=== PATIENT | female | born 1995 | race Caucasian/White ===

== ENCOUNTER → 2021-08-15 | Day surgery (SDC) | payer OTHER ==
[~2021-08-15] VITALS: Ht 160 cm; Wt 69.4 kg
[~2021-08-15] MED LIST: ALPRAZOLAM 0.50.5 M1 PO; CLARITIN10 M2 PO; CYCLOBENZAPRINE5 MG PO; LINEZOLID600 MG PO; METOPROLOL SUCC25 M1 PO; MIRALAX17 GM PO; NORCO5 PO; ONDANSETRON ODT4 MG PO; PEPCID20 MG PO; PERCOCET PO; PROAIR HFA8.5 GM INH; TRAMADOL 50 MG50 MG PO; VITAMIN C1000 MG PO; VITAMIN D325 MC2 PO; ZOFRAN ODT4 MG SUBLING
[2021-08-15 10:26] VITALS: BP 101/51
[2021-08-15 14:34] VITALS: BP 101/51
--- NOTE | 2021-08-22 14:17 | O ---
[facility] [place] [address] [place] [address] OPERATIVE REPORT Name: CELESTINE PORRAS Room #: [facility] Rufino#: [id number] Admission: 08/15/21 Attend Phys: Rupali Mehta DO Discharge: Date of : 97 Report #: [id number] THIS REPORT FOR: cc: FAM - No family physician/PCP FAM - No family physician/PCP Rupali Mehta DO ~ DATE OF SERVICE: 08/15/2021 PREOPERATIVE DIAGNOSES: 1. Lymphadenopathy. 2. Possible lymphoma. POSTOPERATIVE DIAGNOSES: 1. Lymphadenopathy. 2. Possible lymphoma. PROCEDURES: 1. Excisional biopsy of right neck lymph node. 2. Left internal jugular vein Ucfd-U-Zebokufn placement with ultrasound and fluoroscopic guidance and interpretation. SURGEON: Rupali Mehta DO ANESTHESIA: General LMA and local anesthetic. SPECIMENS: Right neck lymph node, sent fresh. ESTIMATED BLOOD LOSS: 25 mL. COMPLICATIONS: None. INDICATIONS FOR PROCEDURES: The patient is a 26-year-old female followed by Dr. Blanc with Oncology in [place], [place]. The patient has concerns for lymphoma and had a previous core needle liver biopsy obtained, which was inconclusive due to crush artifacts. Excisional biopsy of the lymph node was requested as well as Spwy-A-Kntgjwzu placement for chemotherapy. The patient was explained the procedures including risks, benefits and alternatives. All questions were answered to the patient's satisfaction. Informed consent was obtained. DESCRIPTION OF PROCEDURE: After the patient was brought back to the operating room and placed in supine position, general anesthesia was induced. SCDs were placed on bilateral lower extremities and prophylactic antibiotics were administered. Next, after a timeout was performed, the bilateral neck and chest were prepped and draped in the usual sterile fashion and a timeout was performed. The patient's head was turned to the left and attention was first [address] [address] OPERATIVE REPORT Name: LUIGI PORRASICA Room #: [facility] M.R.#: [id number] Admission: 08/15/21 Attend Phys: Rupali Mehta DO Discharge: Date of : 97 Report #: [id number] turned towards the lymph node. The previously marked lymph node in the right submandibular region, which was identified in the preoperative holding area, was palpated and was noted to be approximately 2 x 2 cm in size as well as firm and fixed. Local anesthetic was infiltrated over the palpable node. A 2.5-cm incision was created with a 15 blade scalpel and dissection was carried down to the subcutaneous tissues using Bovie cautery. Next, once the superficial lymph node was identified, it was circumferentially dissected free from the surrounding tissues using a Regi clamp. Next, the lymph node was gently grasped and dissected free from the platysma muscle and was divided with Bovie cautery. This was sent for fresh pathology after discussing with the pathologist that no formalin would be used. Specimens to be sent fresh, so flow cytology could be performed. Next, the platysma muscle was then reapproximated using 3-0 Vicryl suture. The wound was noted to be hemostatic. The subcutaneous tissues were closed in a deep layer of 3-0 Vicryl and the skin was then reapproximated with 4-0 Monocryl in a subcuticular manner. Dermabond was applied for sterile dressing. Next, the instruments were exchanged and top gloves were exchanged to keep the next portion of the procedure sterile. The Anesthesia then turned the patient's head to the right for the Hvkz-L-Oimcyikb placement. An 8-Kiswahili Fchk-S-Evsqmnvg PowerPort was then selected. Using ultrasound guidance, the right IJ and right carotid vein were visualized. The internal jugular vein on the left was accessed on the third attempt, noting dark venous nonpulsatile blood. The wire was then placed. This was visualized with fluoroscopy and noted to be within the right ventricle. There was noted to be some difficulty passing the wire from the distal superior vena cava into the atria; however, it was able to be advanced. Next, the dilator and sheath were then placed. A 3 cm incision was made approximately 2 fingerbreadths below the level of the clavicle and a pocket was created in the deep subcutaneous tissues near the pectoralis muscle. Next, local anesthetic was infiltrated into this pocket as well as the tract from this incision site to the needle stick site where the tunneling of the catheter would be performed. Next, the catheter was then placed through the sheath and the sheath was snapped free parallel to the skin. The tunneling device was then attached to the end of the catheter and brought it out through the subclavicular incision site. With fluoroscopy, the catheter was withdrawn under direct visualization, noting the tip of the catheter at the atrial caval junction. Next, the catheter was then cut at approximately 24 cm at the level of the skin, the clear locking mechanism was placed and the port was attached. The port hub was then placed within the previously created pocket. The port was noted to freely aspirate and flush. It was packed with 10,000 units of heparin and 1 mL mixed with 4 mL of injectable saline. The port was then fixed with two superior aspects of the port to the pectoralis using a 2-0 Prolene suture. Again, the wound was noted to be hemostatic. Local anesthetic was additionally infiltrated into the large skin incision. The skin was then reapproximated with 3-0 Vicryl and 4-0 Monocryl in a subcuticular manner and Dermabond was applied for sterile dressing. A simple 4-0 Monocryl U stitch was then placed at the neck incision. Dermabond was also [facility] [address] [place] [address] OPERATIVE REPORT Name: PORRASCELESTINE Room #: [facility] Oanh.#: [id number] Admission: 08/15/21 Attend Phys: Rupali Mehta DO Discharge: Date of : 97 Report #: [id number] applied. The patient tolerated the procedure well without any complications. She was awakened from anesthesia and taken to the PACU in stable condition for chest x-ray prior to discharge home. <ELECTRONICALLY SIGNED> By: Rupali Mehta DO 08/22/21 1417 1310 1530 Rupali Mehta DO /nt
--- NOTE | 2021-08-23 14:07 | PATH ---
[facility] [address] [place] [address] PATHOLOGY RPT PROCEDURE Name: CELESTINE PORRAS Room #: [facility] [place] M.R.#: [id number] Admission: 08/15/21 Date of : [birth year] Discharge: Report #: [id number] Path Case #: [id number] [facility] Accession Number: [id number] . 01 Material submitted: . neck - RIGHT NECK LYMPH NODE. Modifiers: right . 01 Clinical history: . BIOPSY LYMPH NODE LYMPHACLEMOPATHY . 02 Diagnosis: Lymph nodes (2), right neck, excisional biopsy: - Classic Hodgkin Lymphoma, favor mixed cellularity type, involving 2 of 2 lymph nodes (2/2). See comment. (SCA:patient relations coordinator; 08/22/2021) . . Special studies report received from [facility], [address] [place] [address], [address], [place], [address], on case [id number], labeled with their number [id number], dated 08/17/2021. . Flow Cytometry: Hematologic Neoplasia Assessment . Clinical History Lymphadenopathy . Indication For Study Evaluation for lymphadenopathy . Specimen Lymph Node, Right Neck . Viability 86% (7AAD exclusion) . Interpretation Lymph Node, Right Neck: - Features of T-cell activation (see comment). - Mildly increased CD4:CD8 ratio. - CD30 expression on a subset of T-cells. - B-cells are polytypic. . Comments CD4:CD8 ratio is mildly increased and there is an increased proportion of T-cells with relatively bright CD38 (feature of activation). There is no definitive B-cell light chain abnormality. CD30 is expressed on a subset of T-cells. Similar results are often associated with Hodgkin lymphoma [facility] [address] [place] [address] PATHOLOGY RPT PROCEDURE Name: CELESTINE PORRAS Room #: [facility] [place] M.R.#: [id number] Admission: 08/15/21 Date of : [birth year] Discharge: Report #: [id number] Path Case #: [id number] (the apparent CD30 expression on T-cells may result from rosetting of T-cells around Hodgkin cells). Similar results may also be seen in cases of non-Hodgkin lymphoma where the neoplastic cells are not adequately represented by the flow data or as secondary/reactive changes in non-neoplastic lymph nodes (non-specific reactive changes, granulomatous disease/sarcoidosis, etc.). A CD30+ T-cell lymphoproliferative disorder (including anaplastic large cell lymphoma), is much less likely but cannot be totally excluded based solely on flow cytometry analysis. Correlation with all available clinical, laboratory, and morphologic data is necessary. . Populations Analyzed Lymphocytes: 82% B-cells: 13.2%, polytypic/polyclonal sIg light chain pattern T-cells: no aberrant expression of the T-cell lineage markers tested; increased proportion of T-cells with relatively bright CD38 (feature of activation) (non-specific), CD30 expression on a subset of T-cells CD4:CD8: 12.4 NK cells: 0.5% Granulocytes: 1% Present Monocytes/ 1% Present Histiocytes: CD45 Negative 16% No significant reactivity with the markers tested Events/Debris: (may represent non-hematolymphoid cells, degenerated cells, debris, unlysed red blood cells, etc.) . Morphologic Evaluation A slide was reviewed for coding quality coordinator purposes only. . Specimen Description Total Cell Yield: 18.98 X 10 and 6 . Pertinent Prior Test Results Received Date Test Type Specimen Type Result 08/03/2021 Flow Cytometry Tissue Result Number: [id number] See Report 08/03/2021 Flow Cytometry Peripheral Blood Result Number: [id number] See Report . Reagent(s) Used CD2, CD3, CD4, CD5, CD7, CD8, CD10, CD11b, CD19, CD20, CD23, CD30, CD38, CD43, CD45, CD56, CD57, FMC-7, HLA-DR, kappa, [place] [address] PATHOLOGY RPT PROCEDURE Name: CELESTINE PORRAS Room #: [facility] [place] M..#: [id number] Admission: 08/15/21 Date of : [birth year] Discharge: Report #: [id number] Path Case #: [id number] at [facility]. Ludy Vela MD Pathologist . Intended Use Flow cytometry is optimally used to immunophenotypically characterize abnormal populations when they are detected. Negative flow cytometry results do not exclude lymphoma or neoplasia. Possible false negative flow cytometry results may occur in, but are not limited to, the following: neoplastic cells in Hodgkin lymphoma are not typically adequately represented by routine clinical flow cytometry; neoplastic cells may be lost or inadequately represented due to degeneration, sample processing, sampling artifact, or patchy involvement; plasma cells are typically underrepresented by flow cytometry; immature cells/blasts may be underrepresented due to hemodilution; myeloproliferative disorders and low grade myelodysplasia may not have immunophenotypic abnormalities or increased blasts. Correlation with all available clinical, laboratory, and morphologic data is always necessary to assess for the possibility of false negative flow cytometry results and to establish a diagnosis. Each marker in this analysis was used to assess for potential antigenic abnormalities or to evaluate detected abnormalities. . Any image or images that accompany this report are mechanical service representative images only and should not be used to render a diagnosis. . Disclaimer(s) This test was developed and its performance characteristics determined by [facility]. It has not been cleared or approved by the Food and Drug Administration. . Performing [facility] is a business unit of [facility] a wholly-owned subsidiary of [employer]. . This test was performed at [facility]. at [address] [facility] [address], [address] - Inclusion Specialist: Carson Corado MD. . For inquiries, the physician may contact Lab: [phone] . A complete copy of the report is on file. . Professional services performed by [facility] at [address], [place] [address]. Technical services performed by [facility] at [address], [place] [address]. . [address] [address] PATHOLOGY RPT PROCEDURE Name: CELESTINE PORRAS [id number] Admission: 08/15/21 Date of : [birth year] Discharge: Report #: [id number] Path Case #: [id number] (SCA:am 08/20/2021) . AZJ 08/22/2021 1715 Local . 02 Comment: Sections show lymph nodes (2) with a diffusely effaced tyson architecture. There is a mixed inflammatory cell background composed of small lymphocytes and eosinophils. There are occasional large cells with irregular and hyperchromatic nuclei present. . To further evaluate the large atypical cells, properly controlled immunohistochemical stains were performed on block A3. . CD30 - large atypical cells reactive in a membranous and golgi type pattern. CD15 - large atypical cells reactive, also stains granulocytes. MUM1 - large atypical cells reactive, also stains plasma cells. PAX-5 - large atypical cells weakly reactive, also stains small B-cells. CD3 - highlights T-cells. CD5 - highlights T-cells. BCL-2 - large atypical cells reactive and highlights T-cells. CD20 - highlights small B-cells. CD10 - highlights scattered residual germinal centers. BCL-6 - highlights scattered residual germinal centers. CD45 - large atypical cells negative, stains lymphocytes. CD21 - highlights patchy expanded residual follicular dendritic meshwork. . Flow cytometric immunophenotypic analysis was performed at [facility] ([id number]) which revealed that B-cells were polytypic, a mildly increased CD4:CD8 ratio, CD30 expression on a subset of T-cells, and features of T-cell activation. Please see separate report. . Based on the immunohistochemical and morphologic findings, the diagnosis of Classic Hodgkin Lymphoma, favor mixed cellularity type, is supported. . This case was co-reviewed by Dr. Patricia Peterson on 08/22/2021, who agrees with the above diagnosis. . The findings were discussed with Dr. Woods at 0810 on 08/23/2021. . (SCA:mike; 08/22/2021) . 02 Diagnosis provided by: . Johan Eddy DO, Pathologist NPI- [id number] . 03 Electronically signed: . [address] [address] PATHOLOGY RPT PROCEDURE Name: CELESTINE PORRAS Room #: [facility] [place] M.R.#: [id number] Admission: 08/15/21 Date of : 97 Discharge: Report #: [id number] Path Case #: [id number] Johan Eddy DO, Pathologist NPI- [id number] . 01 Gross description: . The specimen is received in formalin, labeled "Celestine Porras, RT. neck lymph node" and consists of two pink-tinajero candidate lymph nodes (0.8 x 0.4 x 0.4 cm and 1.5 x 1.4 x 1.2 cm), the largest of which has been previously partially disrupted and previously partially sectioned. A mechanical service representative sample has been previously placed in RPMI media and is now given to send outs for additional testing. Two touch preps are made. The remainder of the candidate lymph nodes are submitted as follows: A1: 1 serially sectioned candidate lymph node, entirely submitted A2-A4: Remainder of one serially sectioned candidate lymph node, entirely submitted ([place]; 08/15/2021) DKA/DKA 08/15/2021 1550 Local . 02 Pathologist provided ICD-10: R59.1, I89.8 . 02 CPT . 170768, L58961, G91660 Specimen Comment: A courtesy copy of this report has been sent to [phone] Specimen Comment: Report sent to Specimen Comment: A duplicate report has been generated due to demographic updates. Performed at: 01 [facility] [address] [id number] MD Eugenio Oglesby MD Phone: [phone] Performed at: 02 [facility] [id number] [place] [id number] MD Patricia Peterson MD Phone: [phone] Performed at: 03 [facility] [address] [id number] MD Bob Machado MD Phone: [phone]
== END | disposition home or self-care (01) ==
LOC: OR 08:52
PROVIDERS: ATTEND Surgery
DX: Z45.2 Encounter for adjustment and management of vascular access device (principal); C81.21 Mixed cellularity Hodgkin lymphoma, lymph nodes of head, face, and neck; R59.1 Generalized enlarged lymph nodes; J45.909 Unspecified asthma, uncomplicated; K21.9 Gastro-esophageal reflux disease without esophagitis; Z98.890 Other specified postprocedural states; Z79.899 Other long term (current) drug therapy; Z20.822 Contact with and (suspected) exposure to COVID-19
CPT/HCPCS: 50010; 50101; 50386; 50403; 51938; 54118; 56524; 56525; 56526; 62110; 62900; 70005

== ENCOUNTER 2021-08-17 10:54 | Inpatient (IN) | payer OTHER ==
[~2021-08-17] VITALS: Ht 160 cm; Wt 73.0 kg
[~2021-08-17 10:54] MED LIST changes: -ALPRAZOLAM 0.50.5 M1 PO; -CLARITIN10 M2 PO; -LINEZOLID600 MG PO; -METOPROLOL SUCC25 M1 PO; -MIRALAX17 GM PO; -PEPCID20 MG PO; -PERCOCET PO; -VITAMIN C1000 MG PO; -VITAMIN D325 MC2 PO; -ZOFRAN ODT4 MG SUBLING
[2021-08-17 11:12] VITALS: BP 117/72
[2021-08-17 11:13] LABS: URINE BILIRUBIN NEGATIVE (Negative); URINE BLOOD 2+ (Negative); URINE CLARITY CLEAR; URINE COLOR YELLOW; URINE GLUCOSE-RANDOM* NEGATIVE (Negative); URINE KETONES NEGATIVE (Negative); URINE LEUKOCYTES-REFLEX NEGATIVE (Negative); URINE NITRITE-REFLEX NEGATIVE (Negative); URINE PROTEIN (DIPSTICK) NEGATIVE (Negative); URINE SPECIFIC GRAVITY 1.015 (1.005-1.035); URINE UROBILINOGEN 0.2 E.U./dl (0.2-1.0)
[2021-08-17 11:27] LABS: BACTERIA-REFLEX 1-9 Few /HPF (None Seen); CASTS None Seen /LPF (None Seen); CRYSTALS None Seen /LPF (None Seen); MUCUS >6 Heavy strn/LPF (None Seen); SQUAMOUS >10 Many /LPF (0-3); URINE RBC 1-2 Rare /HPF (NONE SEEN); URINE WBC-REFLEX 0-5 Rare /HPF (0-5)
[2021-08-17 11:51] LABS: HEMATOCRIT 27.3 % (37.0-47.0); HEMOGLOBIN 8.6 gm/dL (12.0-15.0); MCH 25.1 pg (26.0-34.0); MCHC 31.4 g/dL (28.0-37.0); PLATELET COUNT 394 thou/uL (150-400); RBC 3.41 mil/uL (4.20-5.00); RDW 19.4 % (10.5-14.5); WBC 12.6 thou/uL (4.0-11.0)
[2021-08-17 12:08] LABS: CALCIUM 9.2 mg/dL (8.5-10.1); CREATININE 0.7 mg/dL (0.6-1.0); POTASSIUM 3.9 mmol/L (3.5-5.1)
[2021-08-17 12:14] LABS: ALBUMIN 2.8 g/dL (3.4-5.0); TOTAL BILIRUBIN 0.3 mg/dL (0.2-1.0); TOTAL PROTEIN 8.2 g/dL (6.4-8.2)
[2021-08-17 13:09] LABS: APTT 29.3 Seconds (24.5-32.8); INR 1.12; PROTIME 12.1 Seconds (10.5-12.1)
[2021-08-17 13:11] LABS: ABSOLUTE NEUTROPHILS 9.7 thou/uL (1.4-8.2); ATYPICAL LYMPHS 1 %
[2021-08-17 18:36] VITALS: BP 97/55
[2021-08-17 20:03] VITALS: BP 113/67
[2021-08-17 21:29] LABS: % SATURATION 21 % (20-39); IRON 37 ug/dL (50-170); TIBC 178 ug/dL (250-450)
[2021-08-18 04:55] VITALS: BP 107/63
--- NOTE | 2021-08-18 05:02 | HC ---
[facility] [address] [place] [address] CONSULTATION Name: CELESTINE PORRAS Room #: 439-P ADM IN M.R.#: [id number] Admission: 08/17/21 Attend Phys: Ramakrishna Paulson, Discharge: Date of : 97 Report #: [id number] THIS REPORT FOR: cc: MIYA - Lamar family physician/PCP MIYA - Lamar family physician/PCP Doc Pichardo MD ~ DATE OF SERVICE: 08/17/2021 INFECTIOUS DISEASE CONSULTATION ATTENDING PHYSICIAN: Dr. Paulson. REASON FOR EVALUATION: Suspected surgical site infection, left Port-A-Cath chest placement. HISTORY OF PRESENT ILLNESS: Chart reviewed. The patient examined. This is a 26-year-old, has been recently diagnosed with lymphoma, still awaiting definite type and stage result of inconclusive biopsy, did undergo lymph node resection, also placement of a left sided chest Port-A-Cath roughly 48 hours ago. Over the course last 12-18 hours had increasing pain associated with the site of the left chest. She notes she has had fevers, although this has been intermittent previous to that. This could be attributable to the lymphoma. Denies significant pulmonary or gastrointestinal related complaints. She was directed for admission for antimicrobial therapy and additional evaluation. Urinalysis was generally unremarkable. CT of the chest showed extensive adenopathy. Lungs look clear. Apparently no pulmonary emboli. CT abdomen and pelvis, again extensive periportal, peripancreatic adenopathy. Does have some liver changes. She notes injury due to previous ethanol abuse. Lactic acid was 1.5. Blood cultures have been collected. Empirically started on vancomycin. She is generally lucid at this point. ALLERGIES: None known. CURRENT MEDICATIONS: Include vancomycin p.r.n., ondansetron, morphine. PAST MEDICAL HISTORY: As described above, lymphoma, history of alcoholic liver disease. SOCIAL HISTORY: Nonsmoker, no illicit drug use. FAMILY HISTORY: Noncontributory. REVIEW OF SYSTEMS: Otherwise, unremarkable. PHYSICAL EXAMINATION: GENERAL: She is alert, cooperative. She is in mild to moderate distress. She [facility] [address] [facility] [place] [address] CONSULTATION Name: CELESTINE PORRAS Room #: 439-P [facility] IN M.R.#: [id number] Admission: 08/17/21 Attend Phys: Ramakrishna Paulson, Discharge: Date of : 97 Report #: [id number] is lucid. VITAL SIGNS: Temperature 98.2, pulse 107, respirations 16, blood pressure 117/72. SKIN: Warm, dry, no rashes. HEENT: Normocephalic. Extraocular muscles intact. NECK: Does have an approximated incision with some contused areas on the right side of the neck. There is no evidence of drainage at this point. It is mildly palpably tender. LUNGS: Clear breath sounds. HEART: Regular. I do not appreciate any murmur. CHEST: Chest wall on the left side has a fairly extensive contused area. It is tender. There may be some degree of fluctuant fluid in particular in the outer upper quadrant. ABDOMEN: Soft, mildly distended, nontender. EXTREMITIES: No cyanosis. GENITOURINARY AND RECTAL: Deferred. LABORATORY DATA: CBC: White count 12.6, H and H 8.6 and 27.3, platelets of 394. Coronavirus testing was negative. Dopplers of the left upper extremity showed no evidence of venous thrombosis, does have left supraclavicular lymph node enlargement. Lactic acid 1.5. Electrolytes: Sodium 137, potassium 3.9, chloride 99, bicarbonate is 25, anion gap of 13, BUN and creatinine 12 and 0.7. Liver functions unremarkable. Albumin 2.8, total protein of 8.2. CT imaging as described above. ECG was negative. ASSESSMENT: 1. Suspected surgical site infection at a left chest Port-A-Cath placement. 2. Lymphoma, as yet uncharacterized. 3. Underlying liver disease. 4. Asthma. 5. Seizures. PLAN: We will continue empiric therapy with vancomycin. Await blood culture results. At this point, it is difficult to ascertain whether this is simply a subcutaneous hematoma that has caused some excess inflammation. She notes it is quite tender. It is difficult to ascertain some of her systemic signs and symptoms because they may be attributable to the lymphoma. We will see how she does clinically. We will monitor expectantly. Encourage incentive spirometry. We will follow. <ELECTRONICALLY SIGNED> By: Doc Pichardo MD 08/18/21 0502 1246 54 Doc Pichardo MD /nt
--- NOTE | 2021-08-18 05:18 | NUR ---
RECEIVED CARE OF THIS PATIENT AT 1946 FROM ED VIA CART ACCOMPANIED BY ED PERSONEL. PATIENT ALERT AND ORIENTED X4. UP AD [place]. C/O PAIN, MED GIVEN. OORT SITE IS RED AND INFLAMED AND TENDER TO TOUCH. IV IN LFA PATENT WITH FLUIDS INFUSING. SLEPT OFF AND ON DURING NIGHT.
[2021-08-18 05:36] LABS: ABSOLUTE NEUTROPHILS 6.8 thou/uL (1.4-8.2); BASOPHILS 0.3 % (0.0-2.0); EOSINOPHILS 1.1 % (0.0-3.0); HEMATOCRIT 24.5 % (37.0-47.0); HEMOGLOBIN 7.7 gm/dL (12.0-15.0); LYMPHOCYTES 15.8 % (24.0-44.0); MCH 25.2 pg (26.0-34.0); MCHC 31.3 g/dL (28.0-37.0); MCV 80.5 fL (80.0-100.0); POLYS 74.8 % (36.0-66.0); RBC 3.04 mil/uL (4.20-5.00); RDW 19.8 % (10.5-14.5); WBC 9.1 thou/uL (4.0-11.0)
[2021-08-18 05:40] LABS: PLATELET COUNT 276 thou/uL (150-400)
[2021-08-18 05:59] LABS: CREATININE 0.7 mg/dL (0.6-1.0); MAGNESIUM 1.8 mg/dL (1.8-2.4); POTASSIUM 4.1 mmol/L (3.5-5.1)
[2021-08-18 09:10] VITALS: BP 109/67
--- NOTE | 2021-08-18 10:51 | EKG ---
[address] [address] ELECTROCARDIOGRAM REPORT Name: CELESTINE PORRAS Room #: 439-P ADM IN M.R.#: [id number] Admission: 08/17/21 Attend Phys: Ramakrishna Paulson, Discharge: Date of : 97 Report #: [id number] [facility] ED Test Date: 2021-08-17 Test Time: 13:14:21 Pat Name: CELESTINE PORRAS Department: Room: 439 Gender: F Manager Report: SHERYL : 1995 Requested By: Nabil Bradley Order Number: [id number] MD: Rickey Peace Measurements Intervals [place] Rate: 98 P: 41 NC: 134 QRS: 8 QRSD: 80 T: 27 QT: 320 QTc: 409 Interpretive Statements Sinus rhythm No significant abnormality No previous ECG available for comparison Electronically Signed On 08-18-2021 10:51:33 FACILITY SECURITY OFFICER by Rickey Peace [email or web address] <ELECTRONICALLY SIGNED> By: Rickey Peace MD, [facility] 08/18/21 1051 1314 1314 Rickey Peace MD, FACC /EPI
[2021-08-18 12:46] VITALS: BP 108/66
[2021-08-18 16:44] VITALS: BP 128/69
--- NOTE | 2021-08-18 19:11 | NUR ---
PATIENT CARE RESUMMED; PATIENT LOCATED IN BED RESTINF COMFORTABLY IN SEMI-FOWLERS POSITION; PATIENT DENIED PAIN THIS MORNING, THROUGHOUT THE DAY PAIN INCREASED TO A 7/10 PAIN LOCATED IN THE LEFT SIDE OF THE CHEST FROM PORT-A-CATH; V/S PRESENTED NORMAL BLOOD PRESSURE, ALTHOUGH TACHYCARDIAC THROUGHOUT THE DAY; TELLY MONITIOR SHOWS SINUS TACH; SKIN CLEAR BESIDES PORT-A-CATH HAS REDNESS AND MINIMAL REDDNESS; LUNGS CLEAR BILATERALLY, NONLABORED; ABDOMEN SOFT, NONDISTENDED WITH BS*4; AFEBRILE; UP AD AMERICA; INDPENDANT WITH CARES; A&O*4; LOW FALL RISK;
[2021-08-18 20:01] VITALS: BP 101/63
[2021-08-19] VITALS (7 sets, daily range): BP systolic 94–122; BP diastolic 57–75
--- NOTE | 2021-08-19 03:16 | NUR ---
PT PROGRESSING SLOWLY TOWARDS D/C GOAL;S. VSS AFEBRILE. NEW IV PLACED R HAND FOR ABX AD IVF. MEDICATING FOR PORTACATH INFECTION SITE PAIN WITH ADEQUATE RELIEFT OBTAINED PT IS RESTING QUIETLY. ZOFRAN GIVEN X1 FOR NAUSEA.
--- NOTE | 2021-08-19 19:24 | NUR ---
PATIENT IS UP AMERICA IN THE ROOM, PAIN MED GIVEN PRN. DID NOT GIVE METOPROL THIS MORNING DUE TO LOW BLOOD PRESSURE, DID GAVE TO PATIENT THE EVENING DUE TO HER HEART RATE IN THE 120S. CALL LIGHT WITHIN REACH, WILL CONTINOUS MONITORING.
[2021-08-20 04:35] VITALS: BP 93/50
[2021-08-20 05:56] LABS: ABSOLUTE NEUTROPHILS 9.5 thou/uL (1.4-8.2); BASOPHILS 0.4 % (0.0-2.0); EOSINOPHILS 0.8 % (0.0-3.0); HEMATOCRIT 26.6 % (37.0-47.0); HEMOGLOBIN 8.2 gm/dL (12.0-15.0); LYMPHOCYTES 13.4 % (24.0-44.0); MCH 24.6 pg (26.0-34.0); MCHC 30.8 g/dL (28.0-37.0); MCV 79.7 fL (80.0-100.0); MONOCYTES 7.5 % (1.0-8.0); PLATELET COUNT 271 thou/uL (150-400); POLYS 77.9 % (36.0-66.0); RBC 3.33 mil/uL (4.20-5.00); RDW 20.2 % (10.5-14.5); WBC 12.1 thou/uL (4.0-11.0)
[2021-08-20 06:25] LABS: CALCIUM 8.8 mg/dL (8.5-10.1); CREATININE 0.7 mg/dL (0.6-1.0); MAGNESIUM 1.9 mg/dL (1.8-2.4); POTASSIUM 4.1 mmol/L (3.5-5.1)
[2021-08-20 07:19] VITALS: BP 74/36
[2021-08-20 07:20] VITALS: BP 93/51
--- NOTE | 2021-08-20 12:46 | 2DMMODE ---
[facility] [place] [address] [place] [address] 2 D/M-MODE ECHOCARDIOGRAM Name: CELESTINE PORRAS Room #: 439-P ADM IN M.R.#: [id number] Admission: 08/17/21 Attend Phys: Ramakrishna Paulson, Discharge: Date of : 97 Report #: [id number] THIS REPORT FOR: cc: MIYA - Lamar family physician/PCP MIYA - Lamar family physician/PCP Fortino Watt MD [facility] ~ APPROVED REPORT Study performed: 08/20/2021 12:08:59 EXAM: Comprehensive 2D, Doppler, and color-flow Echocardiogram Patient Location: Bedside Room #: 439 Status: routine BSA: 1.74 HR: 101 bpm BP: 107/63 mmHg Rhythm: Tachycardia Other Information Study Quality: Good Indications Bacteremia 2D Dimensions RVDd: 36.91 mm IVSd: 8.46 (7-11mm) LVOT Diam: 18.88 (18-24mm) LVDd: 35.37 mm PWd: 8.88 (7-11mm) Ascending Ao: 24.49 (22-36mm) LVDs: 25.96 (25-40mm) Left Atrium: 31.42 (27-40mm) Aortic Root: 24.14 mm IVC: 14.00 mm Volumes Left Atrial Volume (Systole) Single Plane 4CH: 31.88 mL Single Plane 2CH: 21.38 mL LA ESV Index: 19.00 mL/m2 Aortic Valve AoV Peak Mark.: 1.29 m/s AO Peak Gr.: 6.70 mmHg LVOT Max P.94 mmHg LVOT Max V: 0.99 m/s SARAHY Vmax: 2.15 cm2 [facility] [address] [place] [address] 2 D/M-MODE ECHOCARDIOGRAM Name: CELESTINE PORRAS Room #: 439-P [facility] IN [facility].#: [id number] Admission: 08/17/21 Attend Phys: Ramakrishna Ventura Discharge: Date of : 97 Report #: [id number] Mitral Valve E/A Ratio: 1.7 MV Decel. Time: 222.67 ms MV E Max Mark.: 1.01 m/s MV A Mark.: 0.60 m/s MV PHT: 64.57 ms IVRT: 65.74 ms Pulmonary Valve PV Peak Mark.: 1.17 m/s PV Peak Gr.: 5.44 mmHg Pulmonary Vein P Vein S: 0.37 m/s P Vein A: 0.19 m/s P Vein D: 0.38 m/s P Vein A Dur.: 76.1 msec P Vein S/D Ratio: 0.97 Left Ventricle The left ventricle is normal size. There is normal LV segmental wall motion. There is normal left ventricular wall thickness. Left ventricular systolic function is normal. The left ventricular ejection fraction is within the normal range. LVEF is 55-60%. The left ventricular diastolic function is normal. Right Ventricle The right ventricle is normal size. The right ventricular systolic function is normal. Atria The left atrium size is normal. The right atrium size is normal. Aortic Valve The aortic valve is normal in structure. No aortic regurgitation is present. There is no aortic valvular stenosis. Mitral Valve The mitral valve is normal in structure. There is no mitral valve regurgitation noted. No evidence of mitral valve stenosis. Tricuspid Valve The tricuspid valve is normal in structure. There is no tricuspid valve regurgitation noted. Pulmonic Valve The pulmonary valve is normal in structure. There is no pulmonic [facility] [address] [place] [address] 2 D/M-MODE ECHOCARDIOGRAM Name: CELESTINE PORRAS Room #: 439-P [facility] IN .R.#: [id number] Admission: 08/17/21 Attend Phys: Ramakrishna Ventura Discharge: Date of : 97 Report #: [id number] valvular regurgitation. Great Vessels The aortic root is normal in size. IVC is normal in size and collapses >50% with inspiration. Pericardium There is no pericardial effusion. <Conclusion> Normal left ventricle size/wall thickness Ejection fraction 55% Normal right ventricle size/function Normal atrial size Normal aortic size/mitral valve structure and function No tricuspid valve insufficiency No pericardial effusion Normal aortic root size <ELECTRONICALLY SIGNED> By: Fortino Watt MD, FACC 08/20/21 1246 1246 1246 Fortino Watt MD, [facility] /INF
--- NOTE | 2021-08-20 13:25 | NUR ---
ASSUMED CARE OF PT AT 0700 THIS MORNING. PT IS A/OX4 AND IS RESTING COMFORTABLY. PT HAS HAD ECHO COMPLETE AND AN ULTRASOUND ON THE CHEST PORT AND IS CLEAR. ASSESSMENTS NOTED IN CHART AND OTHERWISE UNREMARKABLE. PT IS UP INDEP WITH NO FALL RISKS. CALL LIGHT AND OTHER NEEDS ARE IN REACH. MEDS AND TX GIVEN NEEDED AND SCHEDULED. WILL MONITOR AND NOTE ANY CHANGES.
[2021-08-20 15:31] VITALS: BP 110/68
[2021-08-21 00:49] VITALS: BP 110/71
--- NOTE | 2021-08-21 03:11 | NUR ---
PT ASSESSMENT COMPLETED AND VSS. MEDS GIVEN ORDERED AND WELL TOLERATED. FALL PRECAUTIONS IN PLACE. PRN PAIN MEDICATION HELPFUL FOR GENERALIZED PAIN. RAT CALL EARLY DURING THE SHIFT WHEN PT COMPLAINED OF CHEST PAIN AND NUMBNESS DOWN HER R ARM. EKG COMPLETED BY ANGELA QUIROZ AND TEAM. RESULTS CALLED TO PARACHUTE MARKER BY ANGELA QUIROZ AM. NO CONCERNS NOTED. PT STATED THAT SHE WAS HAVING ANXIETY AND SOMETIMES SHE GETS NUMBNESS IN HER ARMS FROM HER CURRENT CONDITION. SHE STATED THAT SHE WAS FEELING BETTER. ANGELA QUIROZ ASKED FOR PT TO HAVE HER XANAX EARLY. GIVEN AND WELL TOLERATED. PT SLEEPING WELL AT THIS TIME. MIDNIGHT VSS. WILL CONTINUE TO MONITOR FREQUENTLY.
--- NOTE | 2021-08-21 07:36 | EKG ---
[address] [address] ELECTROCARDIOGRAM REPORT Name: CELESTINE PORRAS Room #: 439- ADM IN M.R.#: [id number] Admission: 08/17/21 Attend Phys: Ramakrishna Paulson, Discharge: Date of : 97 Report #: [id number] [facility] Test Date: 2021-08-20 Test Time: 20:46:22 Pat Name: CELESTINE PORRAS Department: Room: 439 Gender: F Division Superintendent: MARIO : 1995 Requested By: Ramakrishna Paulson Order Number: [id number] MD: Rickey Peace Measurements Intervals [place] Rate: 111 P: 37 FL: 131 QRS: 3 QRSD: 77 T: 2 QT: 316 QTc: 430 Interpretive Statements Sinus tachycardia Otherwise no significant abnormality Baseline wander in lead(s) I,II,aVR,aVL,aVF,V1 Compared to ECG 08/17/2021 13:14:21 No significant changes found Electronically Signed On 08-21-2021 7:36:26 SURGERY SCHEDULING COORDINATOR by Rickey Peace [email or web address] <ELECTRONICALLY SIGNED> By: Rickey Peace MD, [facility] 08/21/21 0736 45 45 Rickey Peace MD, [facility] /EPI
[2021-08-21 07:51] VITALS: BP 113/69
--- NOTE | 2021-08-21 10:40 | NUR ---
ASSUMED PT CARE THIS AM. PT IS ALERT & ORIENTED X4. PT HAS NO IV SITE. PER NIGHT NURSE HOSPITALIST INFORMED NURSE THAT OK NOT TO HAVE IV SITE. PT HAS TELE MONITOR ON. PT IS UP AD AMERICA. PT IS ON ROOM AIR. LAST BM WAS YESTERDAY AND REFUSED MIRALAX THIS AM. PT IS ON THE BED SLEEPING, BED ON THE LOWEST POSITION, SIDE RAILS UP, CALL LIGHT WITHIN REACH. WILL CONTINUE TO MONITOR PT. FOLLOW POC.
[2021-08-21] MEDS ORDERED: CLARITIN10 M2 PO ×2 (12:03)
[2021-08-21] MEDS ORDERED: PERCOCET PO ×2 (12:03)
[2021-08-21] MEDS ORDERED: PEPCID20 MG PO ×2 (12:03)
[2021-08-21] MEDS ORDERED: ALPRAZOLAM 0.50.5 M1 PO ×2 (12:03)
[2021-08-21] MEDS ORDERED: METOPROLOL SUCC25 M1 PO ×2 (12:03)
[2021-08-21] MEDS ORDERED: VITAMIN D325 MC2 PO ×2 (12:03)
[2021-08-21] MEDS ORDERED: MIRALAX17 GM PO ×2 (12:03)
[2021-08-21] MEDS ORDERED: ONDANSETRON ODT4 MG PO ×2 (12:03)
[2021-08-21] MEDS ORDERED: VITAMIN C1000 MG PO ×2 (12:03)
[2021-08-21] MEDS ORDERED: LINEZOLID600 MG PO ×2 (12:03)
[2021-08-21] MEDS ORDERED: ZOFRAN ODT4 MG SUBLING ×2 (13:38)
[2021-08-21 14:15] VITALS: BP 113/69
--- NOTE | 2021-08-21 15:41 | NUR ---
Patient admits with cellulitis. plan dc home today. patient has prescription for zyvoxx. Sp with Dr Pichardo who wants to be assured coverage. With patients permission. Took prescription to [facility] report coverage at [facility]%. Patient request prescription be transferred to [facility] pharmacy in [place]. [facility] pharmacy did so and patient to dc home no needs.
== END 2021-08-21 14:51 | disposition home or self-care (01) | DRG 315 ==
LOC: ER 10:54 → 4S 12:46 → EROBS 12:46 → 4S 18:42
PROVIDERS: Emergency Medicine; Nurse Practitioner; Surgery; ADMIT Surgery; ATTEND Surgery
DX: T80.219A Unspecified infection due to central venous catheter, initial encounter (principal); L03.313 Cellulitis of chest wall; C85.90 Non-Hodgkin lymphoma, unspecified, unspecified site; J45.909 Unspecified asthma, uncomplicated; K21.9 Gastro-esophageal reflux disease without esophagitis; K74.60 Unspecified cirrhosis of liver; F12.90 Cannabis use, unspecified, uncomplicated; D63.8 Anemia in other chronic diseases classified elsewhere; F41.1 Generalized anxiety disorder; E66.01 Morbid (severe) obesity due to excess calories; Y83.8 Other surgical procedures as the cause of abnormal reaction of the patient, or of later complication, without mention of misadventure at the time of the procedure; Z20.822 Contact with and (suspected) exposure to COVID-19; R59.1 Generalized enlarged lymph nodes; Y92.89 Other specified places as the place of occurrence of the external cause; Z68.28 Body mass index [BMI] 28.0-28.9, adult; Z23 Encounter for immunization
CPT/HCPCS: 10100